=== PATIENT | male | born 1995 | race Caucasian/White ===

== ENCOUNTER 2017-03-26 21:44 | Emergency (ER) | payer OTHER ==
[~2017-03-26] VITALS: Ht 177.8 cm; Wt 78.3 kg
[2017-03-26 21:54] VITALS: BP 143/84; PULSE 89; TEMP 36.8; O2SAT 97; Ht 177.8 cm; Wt 78.3 kg
[2017-03-26] MEDS ORDERED: IBUPROFEN 600 MG TAB PO STA (22:02)
--- NOTE | 2017-03-26 22:07 | EMERGENCY ROOM VISIT NOTE ---
ED Visit Note First contact with patient: 21:58 CHIEF COMPLAINT: Hand injury HISTORY OF PRESENT ILLNESS: This is a 21-year-old male patient presented to the emergency department approximately 1-1/2 hours after they injured the right hand while participating in cheerleading. 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 He states when the girl landed, his hand got caught between the other gentleman's hand and the woman the cot. He states he began experiencing immediate pain in the right fourth finger, and suspects it may be dislocated or fractured. The patient is able to move the digit, however has limited flexion at the MCP joint due to pain. The patient rates the pain as throbbing and 5/10. The patient denies any numbness or tingling. The patient does not have injuries to the wrist. The patient has not had a previous fracture to this hand. REVIEW OF SYSTEMS: A 6 system review of systems was completed with positives and pertinent negatives in the HPI. ALLERGIES: None MEDICATIONS: None PMH: None SOCIAL HISTORY: The patient is a [employer] student. He lives locally with his remain. The patient denies drug or tobacco use. He does admit to occasional alcohol use. PHYSICAL EXAM: Vital Signs: Reviewed Nurse's notes, vital signs stable. GENERAL : This is a 21-year-old male, in no acute distress, but appears to be in pain, well-developed, well-nourished. MUSCULOSKELETAL: There is no deformity of the right hand. There is tenderness MCP joint of the fourth digit. There is no thenar or hypothenar eminence atrophy. Normal thumb opposition to all fingers. 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 There is no laceration. Capillary refill less than 2 seconds. No tenderness of the fingers or wrist. Full range of motion of the wrist. No snuff box tenderness. Radial pulse 2+. NEURO: Alert and oriented to person, place, and time. Normal sensation to light and sharp touch. RADIOLOGY: X-Ray Right Hand: RIGHT HAND 3 VIEWS CLINICAL HISTORY: Right hand pain. FINDINGS: 3 views of the right hand are obtained. No prior studies are available for comparison at the time of dictation. The skeletal structures are well mineralized. No fracture is seen. The joint spaces of the hand are well-maintained. The overlying soft tissues are within normal limits. IMPRESSION: Unremarkable radiographic assessment of the right hand. Electronically signed by: Gonzalo Prasad M.D. 03/26/2017 10:39 PM Dictated Date/Time: 03/26/2017 10:38 PM EMERGENCY DEPARTMENT COURSE: I examined the patient. An x-ray of the right hand was reviewed by myself and radiologist and shows no acute bony abnormality. The patient was placed in a finger splint and was advised on proper outpatient care. The patient was discharged home in good condition. I attest that I have personally reviewed the patient's current medication list. Patient was found to have normal blood pressure on screening and does not require follow-up. DIFFERENTIAL DIAGNOSIS: Fracture, contusion, sprain, strain, and others DIAGNOSIS: right 4th finger contusion Current/Historical Medications No Active Prescriptions or Reported Meds Allergies Coded Allergies: No Known Allergies (Unverified , 03/26/17) Vital Signs Date Time Temp Pulse Resp B/P (MAP) Pulse Ox O2 Delivery O2 Flow Rate FiO2 03/26/17 21:54 36.8 89 16 143/84 97 Room Air Medications Administered Medications (Trade) Dose Ordered Sig/Sharlene Route Start Time Stop Time Status Last Admin Dose Admin Ibuprofen (Motrin Tab) 600 mg NOW STAT PO 03/26/17 22:02 03/26/17 22:03 DC 03/26/17 22:14 600 MG Departure Information Impression Primary Impression: Contusion of right hand Dispostion Home / Self-Care Condition GOOD Prescriptions No Active Prescriptions or Reported Meds Referrals [facility] Patient Instructions ED Contusion Hand, My [facility] Additional Instructions You were seen in the emergency department today for a hand contusion. X-ray did rule out fracture or dislocation. Ibuprofen(Motrin, Advil) may be used for fever or pain. Use 600mg every six hours as needed. Take with food. Avoid using more than 2400mg in a 24 hour period. Do not use 2400mg per day for more than three consecutive days without physician direction. Prolonged inappropriate use can lead to stomach upset or ulcers. (AND/OR) Acetaminophen(Tylenol) may be used for fever or pain. Use 1000mg every six hours as needed. Avoid using more than 3000mg in a 24 hour period. I would avoid physical activity and overuse of the hand for the next 3-5 days until your pain free. Use ice to help with swelling and pain. Return to the emergency department for worsening pain, swelling, redness, puslike drainage, fever, chills, or other concerning symptoms. If no improvement in one week, follow-up with [facility] or with [facility]. Problem Qualifiers Primary Impression: Contusion of right hand Encounter type: initial encounter Qualified Codes: S60.221A - Contusion of right hand, initial encounter
--- NOTE | 2017-03-26 22:40 | DIAGNOSTIC IMAGING REPORT ---
RIGHT HAND 3 VIEWS CLINICAL HISTORY: Right hand pain. FINDINGS: 3 views of the right hand are obtained. No prior studies are available for comparison at the time of dictation. The skeletal structures are well mineralized. No fracture is seen. The joint spaces of the hand are well-maintained. The overlying soft tissues are within normal limits. IMPRESSION: Unremarkable radiographic assessment of the right hand. Electronically signed by: Gonzalo Prasad M.D. 03/26/2017 10:39 PM Dictated Date/Time: 03/26/2017 10:38 PM
== END 2017-03-26 22:56 | disposition home or self-care (01) ==
LOC: C.EDB 21:46 → C.EDD 22:56
DX: S60.221A Contusion of right hand, initial encounter (principal); W22.8XXA Striking against or struck by other objects, initial encounter